=== PATIENT | male | born 1985 | race Caucasian/White ===

== ENCOUNTER 2022-06-28 16:01 | Emergency (ER) | payer SELFPAY ==
[~2022-06-28] VITALS: Ht 177.8 cm; Wt 88.9 kg
[~2022-06-28 16:01] MED LIST: ANAPROX DS550 MG PO; CLARITIN10 MG PO; MEDROL DOSEPAK4 MG PO; MOTRIN800 MG PO; PENICILLIN VK500 MG PO; VICODIN 5/500 505 MG PO; ZITHROMAX Z PA250 MG PO
[2022-06-28] MEDS ORDERED: AMOXICILLIN500 M2 PO (16:40)
[2022-06-28] MEDS ORDERED: Motrin,Rufen800 MG PO (16:40)
== END 2022-06-28 17:12 | disposition home or self-care (01) ==
LOC: ED 16:01
DX: K08.89 Other specified disorders of teeth and supporting structures (principal); Z87.891 Personal history of nicotine dependence